=== PATIENT | male | born 1990 | race Caucasian/White ===

== ENCOUNTER 2024-04-10 07:38 | Emergency (ER) | payer MEDICAID ==
[~2024-04-10] VITALS: Ht 180.3 cm; Wt 98.8 kg
[~2024-04-10 07:38] MED LIST: HYDR-3965 PO; PENI500T2 PO
[2024-04-10 07:49] VITALS: BP 147/80; PULSE 70; RESP 18; TEMP 98.7; O2SAT 98
[2024-04-10] MEDS ORDERED: AMOX-117 PO (08:03)
[2024-04-10] MEDS: HYDROcodone/acetaminophen 10/325mg tab PO ONE (08:13)
[2024-04-10] MEDS: amox tr/potassium clavulanate 875/125mg TAB PO ONE (08:13)
== END 2024-04-10 08:20 | disposition home or self-care (01) ==
LOC: ER 07:39
DX: K04.7 Periapical abscess without sinus (principal); K02.9 Dental caries, unspecified; K08.89 Other specified disorders of teeth and supporting structures; Z79.899 Other long term (current) drug therapy
CPT/HCPCS: 99283